=== PATIENT | male | born 1985 | race Caucasian/White ===

== ENCOUNTER 2016-07-17 13:26 | Day surgery (SDC) | payer OTHER ==
[~2016-07-17] VITALS: Ht 185.4 cm; Wt 90.0 kg
[2016-07-17] VITALS (7 sets, daily range): BP systolic 126–142; BP diastolic 74–90; PULSE 70–96; RESP 14–17; O2SAT 96–100
[~2016-07-17 13:26] MED LIST: CeFAZolin Inj 2 GM in Dextrose 5% 50 ML IV ONE; Lactated Ringer's 1,000 ML IV SCH
[2016-07-17] MEDS ORDERED: fentaNYL-PF 50 mCg/mL 2 mL Inj ONE ×2 (13:27→13:36)
[2016-07-17] MEDS ORDERED: Ondansetron 2 mg/mL 2 mL Inj ONE (13:27)
[2016-07-17] MEDS ORDERED: Propofol 10,000 mCg/mL 20 mL Inj ONE (13:27)
[2016-07-17] MEDS ORDERED: EPHEDrine/NS 5 mg/mL 5 mL Syringe ONE (13:27)
[2016-07-17] MEDS ORDERED: Phenylephrine/NS 100 mCg/mL 10 mL Syringe IVPUSH ONE (13:27)
[2016-07-17] MEDS ORDERED: Lidocaine PF 1% 30 mL Inj ONE (13:27)
[2016-07-17] MEDS ORDERED: CeFAZolin Inj 2 gm / 50mL D5W IV ONE (13:38)
[2016-07-17] MEDS ORDERED: Lactated Ringer's 1,000 ML IV ONE ×2 (13:45→18:30)
[2016-07-17] MEDS ORDERED: NO HOME MEDICATIONS (14:00)
[2016-07-17] MEDS ORDERED: oxyCODONE-Acetamin 5-325 mg Tablet PO PRN (14:00)
[2016-07-17] MEDS ORDERED: Lactated Ringer's 500 ML IV PRN (14:02)
[2016-07-17] MEDS ORDERED: Lactated Ringer's 1,000 ML IV SCH (14:02)
--- NOTE | 2016-07-17 14:02 | PCM.HPANE ---
Patient Data Date of Service: Jul 17, 2016 Surgeon Admitting Provider: Attending Provider:Fredrick Elias MD Primary Care Physician:Riley Crawford DO Other Provider:Louise Sánchez Anesthesia Reason for Visit Right Ankle Instability Ht/WT & BMI Height (Feet): 6 Height (Inches): 2 Weight (Kilograms): 86.182 Body Mass Index 24.00 Allergies Coded Allergies: hydrocodone (Verified Allergy, Intermediate, HEARTBURN, ACID REFLUX, ) Diabetes History Hx Diabetes?: No MRSA MRSA: No Medications Hypertension Medication: No Home Meds Incl Beta Sg: No No Active Prescriptions or Reported Meds History History of ENT Problems?: No Hx of Heart Problems?: No Hx of Respiratory Problem?: No Hx Neurologic Problems?: No Hx of GI Problems?: No Hx of Problems?: No Male Hx: Denies:: Prostate Problems Scrotal Mass Testicular Surgery Skin History: Denies:: History Skin Disorders? Pressure Ulcers Hx Musculoskeletal Problems?: No Hx Surgeries?: No Hx Any Other Health Problems?: No Hx Alcohol Use: YesHx Substance Use: NoHave You Smoked inLast 12 mo: No ( "VAPES" SEVERAL TIMES PER DAY) Stop/Bang Treated for Sleep Apnea?: No Do You Have a CPAP Machine?: No S-Snoring: Do You Snore Loudly: Yes T-Tired: feel tired, fatigued: Yes O-Obsered: Observed not breath: No P-Blood Pressure: treated: No B- Body Mass Index > 35 kg/m2: No A- Age over 50: No N- Neck Large Circumference: No G- Gender Male: Yes NEIL Total Score: 3 NEIL Risk Assessment: High Risk, =/>3 Yes NEIL Category 4 OutPt Procedure: Yes Risk Assessment Category Category 1A: Patient has history of documented sleep apnea, and HAS NOT received any narcotic, sedative or anesthesia administration during this stay. Category 1B: Patient has history of documented sleep apnea, and HAS received any narcotic , sedative or anesthesia administration during this stay Category 2: Patient has SUSPECTED Obstructive Sleep Apnea, and HAS received any narcotic , sedative or anesthesia administration during this stay. Category 3: Patient has SUSPECTED Obstructive Sleep Apnea and HAS NOT received narcotic, sedative or anesthesia administration during this stay. Category 4: Outpatient in Procedural Areas with known sleep apnea or who screen positive for High Risk via the STOP/BANG questionnaire. Exam Exam General Appearance: Alert, Oriented X3, Cooperative HEENT/AIRWAY: MP 1, Neck Movement (Full), Mouth Opening Lungs: Clear to Auscultation, Normal Air Movement Heart: Regular Rate/Rhythm, Normal S1, Normal S2 Plan Impression Patient chart reviewed, patient interviewed and anesthestic plan with risks, benefits, and alternatives discussed, and informed consent obtained. NPO Status: > 8 hours ASA Physical Status: ASA1 Normal Healthy Anesthetic Plan: GA, Regional Block Bene/Risks/Altern/Consents: Yes HP Complete Prior to Induction: Yes Papo Esquivel MD Jul 17, 2016 14:02
[2016-07-17] MEDS ORDERED: Atropine 0.4 mg/mL Inj IVPUSH PRN (14:05)
[2016-07-17] MEDS ORDERED: Ondansetron 2 mg/mL 2 mL Inj IVPUSH PRN (14:05)
[2016-07-17] MEDS ORDERED: HYDROmorphone 1 mg/mL Inj IVPUSH PRN (14:05)
[2016-07-17] MEDS ORDERED: MetoCLOpramide 5 mg/mL 2 mL Inj IVPUSH PRN (14:05)
[2016-07-17] MEDS ORDERED: Labetalol 5 mg/mL 4 mL Inj IV PRN (14:05)
[2016-07-17] MEDS ORDERED: hydrALAZINE 20 mg/mL Inj IVPUSH PRN (14:05)
[2016-07-17] MEDS ORDERED: Phenylephrine 10,000 mCg/mL Inj IVPUSH PRN (14:05)
[2016-07-17] MEDS ORDERED: Dexamethasone 4 mg/mL Inj IVPUSH PRN (14:05)
[2016-07-17] MEDS ORDERED: EPHEDrine Sulfate 50 mg/mL Inj IVPUSH PRN (14:05)
[2016-07-17] MEDS ORDERED: fentaNYL-PF 50 mCg/mL 2 mL Inj IVPUSH PRN (14:05)
--- NOTE | 2016-07-17 14:15 | PCM.ORTHOP ---
Orthopedic Operative Report Date of Service: Jul 17, 2016 Pre Operative Diagnosis right ankle instability Post Operative Diagnosis right ankle instability Procedure Right ankle arthroscopy, partial synovectomy, debridement, ATFL and CFL reconstruction, modified Brostrm procedure Surgeon Surgeon: Fredrick Elias MD Assistants: Rodney Cruz Indication for Procedure right ankle instability Findings per dictation Details of Procedure Indication: Reynaldo Josue is a 31-year-old male who presents with ankle pain and instability. A clear explanation was given to the patient regarding the condition present, and the available conservative and surgical options. It was emphasized that the risks and benefits of surgery include but are not limited to infection, wound healing problems, damage to adjacent structures such as nerves, blood vessels and tendons, nursing home disability and pain, arthritis, hypersensitivity, deep vein thrombosis, pulmonary embolism, broken hardware, failure of surgery, need for further procedures at time of surgery or later, loss of limb or life. The patient was given an explanation and the patient voiced understanding of what to expect after the procedure or surgery, the limitations in activities of daily living, the likely duration for post operative recovery and the instructions that are to be followed. At the end the patient was invited to seek clarification or ask further questions but there were none. The patient voiced understanding of the entire consultation. Patient was taken to operating room and transferred to operating table in supine position. The patient received a popliteal block. Time out was performed with both anesthesia and orthopaedics faculty present to confirm details of case to be performed. After time out performed, patient placed under general anesthesia. A right thigh tourniquet was placed over softroll and secured with tape. cobian anterior landmarks were identified- dorsalis pedis artery, saphenous vein and anterior tibial, peroneus tertius, extensor digitorum communis, and Achilles tendons. Marking the superficial peroneal nerve branches was performed ; this is done with the foot held in plantar flexion and inversion. Patient position was again checked to ensure all bony prominences adequately padded. The leg was prepped and draped in the usual sterile fashion to the level of the tourniquet. Slight distraction was obtained to open up the tibial talar joint. The medial portal was made over the ankle joint and enlarged using a hemostat. The scope was inserted and the lateral portal was made under direct visualization. After appropriate debridement was done, a diagnostic arthoscopy was performed to look at the medial and lateral gutters, talar dome and tibial plafond. There was scar tissue within the anterolateral gutter which was debrided as well as posterior synovitis which was debrided with the shaver. Partial tearing of the anterior inferior tibiofibular ligament was noted and debrided. The portals were closed with 4-0 nylon. Xeroform, 4x4, Gauze and soft roll was then applied to the leg. There were no complications. The patient was extubated and patient taken to recovery in stable condition. Next a vertical incision was made along the central fibula extending down to the fourth metatarsal base. The extensor retinaculum was preserved and the torn anterior talofibular ligament and CFL was debrided. A fluoroscopic examination with manual talar tilt testing was performed to confirm the amount of tilt seen on the previous Telos stress test. Some patients had difficulty appropriately relaxing or experienced excessive pain during preoperative stress testing on the Telos machine, and thus, the larger of the 2 values was used for surgical decision making. Initial ankle arthroscopic surgery was performed with the patient in the supine position using noninvasive distraction, a standard 3-portal technique, and small-joint instruments. After the arthroscopic procedure, the patient was placed into a semilateral position with a bump under the hip while maintaining sterility. The ankle was then reprepared and draped, and new sterile instruments were utilized. A tourniquet was inflated before beginning the open portion of the procedure. A curvilinear incision was centered over the distal fibula and extended proximally and distally toward the sinus tarsi. Full-thickness soft tissue flaps were created, and the sural nerve and its branches were directly visualized and protected. The peroneal sheath was identified and opened, and a vessel loop was placed around the tendons, which were retracted posteriorly. The extensor retinaculum was released off of the posterior fibula and reflected distally. The soft spot between the ATFL and the anterior inferior tibiofibular ligament was identified, and a curved clamp was inserted into this spot and positioned distal to the inferior tip of the fibula. The ATFL and CFL were released from their fibular attachments, leaving a 3-mm cuff of tissue on the fibula.In this case, the ATFL and CFL consisted of thin, poor-quality tissue and was insufficient for isolated Brostrom repair. A semitendinosus allograft was used for ligament reconstruction. A high-strength nonabsorbable No. 2 suture was stitched 15 mm into each end of the graft using the Krackow technique. The graft diameter was then measured. Drill tunnels in the talus and calcaneus were 0.5-1.0 mm larger than the size of the graft and use screws the same diameter as the tunnel. We used a 4.5-mm graft, 5.5-mm tunnels, and 5.5 15- mm Bio-Tenodesis screws ([employer] The lateral talar neck was exposed, and a cannulated drill system was used to drill a 5.5-mm tunnel, which was 20 mm deep just distal to the talar articular cartilage and approximately 18 mm proximal to the subtalar joint. A cannulated drill wire was placed in the fibular insertion of the ATFL on the anterior aspect of the fibula roughly 14 mm proximal to its tip. A second wire was placed 5mm from the distal tip of the fibula . It was critical to ensure that the tunnels were placed in the center of the fibula in the coronal plane to minimize the risk of tunnel blowout or compromise. The 2 wires were overdrilled with 5.0-mm drills, converging the 2 tunnels. Straight and angled curettes were used to enlarge the tunnel and smooth the inside of the tunnel to aid in graft passage through the fibula. The ATFL portion was a 4.75 Bio-Tenodesis screw was placed in the fibula under tension. The proximal tip of the graft was compressed into the talar tunnel, and a 5.5 3 15-mm Bio-Tenodesis screw was placed into the tunnel to fixate the graft. The distal portion (CFL) of the graft was placed onto the calcaneus, and a spot was marked on the skin approximately 13 mm inferior to the subtalar joint , angled approximately 130deg posteriorly from the shaft of the fibula. Dissection was carried down to the calcaneal body, and a cannulated drill wire with an eyelet was inserted and drilled posteromedially across the calcaneus, carefully exiting to avoid the neurovascular bundle. This wire was overdrilled to create a 5.5 25-mm tunnel. A soft tissue path deep to the peroneal tendons was created from the tip of the fibula to the calcaneal drill hole while protecting the sural nerve. The distal end of the graft was pulled through this soft tissue tunnel toward the calcaneal tunnel. With the ankle reduced in 0 of dorsiflexion and no inversion/eversion, the distal portion of the graft was pulled across the calcaneal tunnel, and a dimitri was made on the graft corresponding to the level of the tunnel. A second dimitri was made 20 mm distal to the first dimitri, and the graft was cut at this second dimitri. A high-strength nonabsorbable No. 2 suture was stitched 20 mm into the end of the graft using the fast whip technique. Both strands of the suture were loaded into the eyelet of the cannulated wire, and the wire was pulled out the medial side of the calcaneus along with the loaded sutures. The hindfoot was held reduced as described above, and a 5.5 15-mm screw was advanced into the calcaneal tunnel. The suture exiting the medial heel was cut at skin level to complete the reconstruction. The modified Brostrom procedure was then performed over the semitendinosus reconstruction procedure. A ksnoe-wsyf-srei technique using a combination of high-strength absorbable and nonabsorbable sutures, as previously described. Care was taken to ensure that ankle and subtalar motion was stable but unrestricted. The incision was closed in layers with 0 Vicryl, 2-0 Vicryl, 3-0 nylon. Xeroform, 4x4, Gauze and soft roll was then applied and a well-padded posterior and U-splint was placed. There were no complications. The patient was extubated and patient taken to recovery in stable condition. The patient was seen in the clinic at 14 days and a walking boot placed. The patient can advance to full weightbearing by 3-4 weeks with active dorsiflexion and relaxed plantarflexion, active eversion and no active inversion. At 4 weeks , start band work, stationary bike and pool work, full weight bearing. The patient will be placed in a compression stocking and boot, and formal physical therapy was initiated at 4 weeks At 9 weeks, the patient transitioned to a normal shoe with a brace. Patients will be cleared to return to athletics and/ or work without restrictions once they have completed all 4 phases of ankle rehabilitation around 3 months. DRAMATIC DIRECTOR SURGEON: During the operation, the services of physician assistant professor surgical technology were medically indicated and necessary to provide exposure of the operative site for the surgical procedure and to maintain the limb in a proper position to carry out the operation safely and efficiently. Without the qualified pastoral assistant being present, it would have extended the operative procedure and made the procedure technically more difficult to perform. Grafts, Implants: Implants-See Implant Record Complications There were no periprocedural complications identified. Condition Stable Anesthetic Administered: GA Catheters: None Output, Estimated Blood Loss: 20 Blood Admin during surgery: No Surgical Cast or Splint: Well-padded Short Leg Splint Surgical Specimen Removed: No Specimen sent to Pathology: No copies to: Fredrick Elias MD, Christopher L MD Jul 17, 2016 14:15 Specimen sent to Pathology: No copies to: Fredrick Elias MD, Christopher L MD Jul 17, 2016 14:15
[2016-07-17] MEDS ORDERED: Bacitracin 50,000 unit Inj IRRIGATION ONE (15:33)
--- NOTE | 2016-07-17 17:18 | PCM.ANEP1 ---
Post Anesthesia Phase 1 PACU Phase 1 Assessment Date of Service: Jul 17, 2016 Vital Signs PACU HR 108, RR 20, O2 98% 10L, BP 133/90, T 36.5 Vital Signs Date Time Temp Pulse Resp B/P Pulse Ox O2 Delivery O2 Flow Rate FiO2 07/17/16 13:45 36.1 85 16 132/87 98 Room Air Anesthetic Administered: GA, Regional Block Level of Alertness: Awake, talking RM's with Equal Strength: No Pain: No Nausea or Vomiting: No Oxygen Delivery: Simple Mask Lungs: Normal Air Movement Papo Esquivel MD Jul 17, 2016 17:18
--- NOTE | 2016-07-17 17:20 | PCM.ANEP2 ---
Post Anesthesia Evaluation ASA/CMS Post Anesthesia Date of Service: Jul 17, 2016 VS in Patient's Normal Range?: Yes Resp Stable; Airway Patent?: Yes CV Function & Hydration Stable: Yes Mental Status Recovered?: Yes Pain control Satisfactory?: Yes N/V Control Satisfactory?: Yes Additional Comments block working well, comfortable Papo Esquivel MD Jul 17, 2016 17:20
== END 2016-07-17 23:59 | disposition home or self-care (01) ==
LOC: SAS 13:26
PROVIDERS: ATTEND Orthopaedic Surgery
DX: M25.371 Other instability, right ankle (principal); M65.9 Synovitis and tenosynovitis, unspecified; S93.411A Sprain of calcaneofibular ligament of right ankle, initial encounter; S93.431A Sprain of tibiofibular ligament of right ankle, initial encounter; Z53.33 Arthroscopic surgical procedure converted to open procedure; Z87.891 Personal history of nicotine dependence
CPT/HCPCS: 27698; 29895; 76001; 76942; C1713; J0690; J2250; J2370; J2405; J3010; J7120